=== PATIENT | male | born 1960 | race Caucasian/White ===

== ENCOUNTER 2023-09-10 07:40 | Outpatient (CLI) | payer BC, SELFPAY ==
--- NOTE | 2023-09-10 09:13 | W.ANESCHARGE ---
Anesthesia Charges Start Date/Time Anesthesia Start Date: 09/10/23 Anesthesia Start Time: 08:51 Stop Date/Time Anesthesia Stop Date: 09/10/23 Anesthesia Stop Time: 09:17
--- NOTE | 2023-09-10 09:19 | W.ANESCHARGE ---
Anesthesia Charges Start Date/Time Anesthesia Start Date: 09/10/23 Anesthesia Start Time: 08:51 Stop Date/Time Anesthesia Stop Date: 09/10/23 Anesthesia Stop Time: 09:17
== END 2023-09-10 07:41 | disposition home or self-care (01) ==
PROVIDERS: PCP Family Medicine; Visit Provider Internal Medicine Gastroenterology
DX: Z12.11 Encounter for screening for malignant neoplasm of colon (principal); K63.5 Polyp of colon; K62.1 Rectal polyp; K57.30 Diverticulosis of large intestine without perforation or abscess without bleeding; Z86.010 Personal history of colon polyps
CPT/HCPCS: 45385; 811; 88305; J2704

== ENCOUNTER 2025-02-01 20:49 | Emergency (ER) | payer BC, SELFPAY ==
--- OUTSIDE RECORDS SUMMARY | 2025-02-01 20:52 | XMS_ITS | Continuity of Care Document ---
Author Organization [place] - [facility] Address [address] [facility] [address] [place] [address] Care Team Providers Care Pin Inserter Regulator Name Role Phone NICHOLAS DOWLING Primary Care Provider Assessment No assessment recorded. Plan of Treatment Reminders Order Date Submit Date Provider Last Modified By Organization Details Last Modified Time Details Appointments LAB BLOOD DRAW 2024 09:50A M [facility] URY Not available Not available Not available ESTABLISH ED 15 2024 10:00A M CHERYL MORROW MD Not available Not available Not available APC EST 2025 10:40A M Jigna Yao PA-C Not available Not available Not available Lab None recorded. Referral None recorded. Procedures None recorded. Surgeries None recorded. Imaging None recorded. Medication Orders None recorded. Patient TargetsNo targets recorded. Patient InstructionsNo instructions recorded. Reason for Referral None Reported. Results Created Date Observation Date Name Description Value Unit Range Abnormal Flag Note LastModifiedBy Organization Detail LastModifiedTime 12/24/1912/23/2024 UA WITHO UT MICRO - CS URISC AN blood - uriscan LARGE negati ve abnormal Not Available [facility] [address], [place], [address], 12/23/2024 11:53:44 12/24/1912/23/2024 UA WITHO UT MICRO - CS URISC AN bilirubin - uriscan NEGATI VE mg/dL negati ve Not Available [facility] [address] [facility] [address], [place], [address], 12/23/2024 11:53:44 12/24/19 25 12/23/2024 UA WITHO UT MICRO - CS URISC AN urobilinogen - uriscan NORMAL mg/dL normal Not Available [facility] [address] [facility] [address], [place], [address], 12/23/2024 11:53:44 12/24/19 25 12/23/2024 UA WITHO UT MICRO - CS URISC AN ketones - uriscan NEGATI VE mg/dL negati ve Not Available [facility] [address] [place] [address] [address], [place], [address], 12/23/2024 11:53:44 12/24/19 25 12/23/2024 UA WITHO UT MICRO - CS URISC AN protein - uriscan 10 mg/dL negati ve abnormal Not Available [facility] [address] [place] [address] [address], [place], [address], 12/23/2024 11:53:44 12/24/19 25 12/23/2024 UA WITHO UT MICRO - CS URISC AN nitrites - uriscan POSITI VE negati ve abnormal Not Available [facility] [address] [place] [address] [address], [place], [address], 12/23/2024 11:53:44 12/24/19 25 12/23/2024 UA WITHO UT MICRO - CS URISC AN glucose - uriscan NEGATI VE mg/dL negati ve Not Available [facility] [address] [place] [address] [address], [place], [address], 12/23/2024 11:53:44 12/24/19 25 12/23/2024 UA WITHO UT MICRO - CS URISC AN pH - uriscan 6.00 5.00-9 .00 Not Available [facility] [address] [place] [address] [address], [place], [address], 12/23/2024 11:53:44 12/24/19 25 12/23/2024 UA WITHO UT MICRO - CS URISC AN sp. gravity - uriscan 1.01 1.01-1 .03 Not Available [facility] [address] [place] [address] [address], [place], [address], 12/23/2024 11:53:44 12/24/19 25 12/23/2024 UA WITHO UT MICRO - CS URISC AN leukocytes - uriscan TRACE negati ve abnormal Not Available [facility] [address] [place] [address] [address], [place], [address], 12/23/2024 11:53:44 12/24/19 25 12/23/2024 UA WITHO UT MICRO - CS URISC AN color - uriscan YELLOW lt. yellow ;yello w Not Available [facility] [address] [place] [address] [address], [place], [address], 12/23/2024 11:53:44 12/24/19 25 12/23/2024 UA WITHO UT MICRO - CS URISC AN clarity - uriscan CLEAR clear Not Available [facility] [address] [place] [address] [address], [place], [address], 12/23/2024 11:53:44 12/24/19 25 12/23/2024 UA WITHO UT MICRO - CS URISC AN total urine volume (mL) 60 /mL ----- ----- ----- ----- ----- ----- ----- ----- ----- ----- ----- ----- ----- ----- ---- *Plea se note the follo wing minim um quant ities for addit ional urine testi ng: - Atypi cals: 3 mL - Cytol ogy: 20 mL - GC/CH : 2 mL - FISH: 30 mL - Atypi cals w/ GC/CH : 5 mL - Cytol ogy PLUS FISH: 50 mL - Urine Cultu re: 3 mL ----- ----- ----- ----- ----- ----- ----- ----- ----- ----- ----- ----- ----- ----- ---- This lab resul t is being provi ded to you and your provi greg at the same time in compl iava [facility] with the Centu ry Cures Act. Your provi greg may not have had time to revie w and make recom menda tions based on the resul t. Earlene e allow up to one week for provi greg revie w. Not Available [facility] [address] [facility] [address], [place], [address], 12/23/2024 11:53:44 12/24/19 25 12/23/2024 UA MICRO SCOPI C U-WBC 11 - 25 [hpf] 0 - 2 abnormal Not Available [facility] [address] [place] [address] [address], [place], [address], 12/23/2024 11:53:46 12/24/19 25 12/23/2024 UA MICRO SCOPI C U-RBC 0 - 2 [hpf] 0 - 2 Not Available [facility] [address] [place] [address] [address], [place], [address], 12/23/2024 11:53:46 12/24/19 25 12/23/2024 UA MICRO SCOPI C bacteria MANY [hpf] none;r are abnormal Not Available [facility] [address] [place] [address] [address], [place], [address], 12/23/2024 11:53:46 12/24/19 25 12/23/2024 UA MICRO SCOPI C squamous epi SMALL /lpf negati ve,sma ll This lab resul t is being provi ded to you and your provi greg at the same time in compl iance with the Centu ry Cures Act. Your provi greg may not have had time to revie w and make recom menda tions based on the resul t. Earlene e allow up to one week for provi greg revie w. Not Available [facility] [address], [place], [address], 12/23/2024 11:53:46 12/24/19 25 12/23/2024 URINE CULTU RE final report MICROB IOLOGY RESULT S abnormal SOURC E Bladd er Washi ngs KNOWN ALLER GIES NKDA TREAT MENT will start Bactr im pendi ng UC resul ts MEDIA PLATE D AT: Media plate d on 2024 @ 1:44 PM COLON Y COUNT >100, 000 cfu/m l RESUL T Pseud omona s aerug inosa (Isol ate 1) RESUL T Dinorah deven dinorah adolfo (Isol ate 2) Sensi tivit y Holley sis Frederick te 1 Frederick te 2 ----- ----- ----- ----- ----- ----- ----- - ----- ----- ----- - AMOX/ K CLAV >16/8 R AMPIC ILLIN >16 R CEFAZ BRENT >16 R CEFTA ZIDIM E 4*S CEFTA ZIDIM E/ANTONIO BACTA M <=4*S <=4*S CEFTR IAXON E <=1*S CEFUR OXIME >16 R CIPRO FLOXA CARLOS <=0.2 5*S <=0.2 5*S GENTA MICIN <=4*S IMIPE NEM <=1*S 4 R LEVOF LOXAC IN <=0.5 *S <=0.5 *S MEROP ENEM <=1*S <=1*S MEROP ENEM/ VABOR BACTA M <=4*S NITRO FURAN TOIN 64 R PIP/T AZO <=16* S <=16* S TETRA CYCLI NE <=4*S TOBRA MYCIN <=2*S <=2*S TRIME TH/CARLSON LFA <=2/3 8*S Orga nisms that are susce ptibl e to tetra cycli ne are gener ally also susce ptibl e to doxyc yclin e and minoc yclin e. Any subst ituti on of drugs which have not been teste d for sensi tivit y shoul d be consi dered based on appro west usage of the drugs . Infor jesus botello on doxyc yclin e and minoc yclin e can be found in the Physi krista' s Desk Refer ence or from the [facility] actur er. S= Susce ptibl e;I= Inter media te;R= Resis tant; ESBL= Resis tance due to confi rmed ESBL; Suspe cted ESBL= Posit nehal scree rubio only This lab resul t is being provi ded to you and your provi greg at the same time in compl iance with the Centu ry Cures Act. Your provi greg may not have had time to revie w and make recom menda tions based on the resul t. Plepatrick e allow up to one week for provi greg revie w. Not Available [facility] [address] [facility] [address], [place], [address], 12/26/2024 11:20:28 12/30/19 25 12/29/2024 CT, cysto gram No observ ation record ed. JOSE [facility] [place] [address] [facility] [address], [place], [address], 12/30/2024 07:48:35 Result Notes None recorded. Problems Name Problem SNOMED Code Status Onset Date Resolution Date Notes Provider Name and Address Organization Details Recorded Time Ostium secundum type atrial septal defect 409572231 Active 2023 Cheng Meath null, [facility] 4 15:47:28 Cerebral infarction 903144339 Active 2023 Cheng Meath null, [facility] 4 15:47:40 Transient cerebral ischemia 522938656 Active 2023 Cheng Meath null, [facility] 4 15:47:48 Hypercholester olemia 13906052 Active 2023 Cheng Meath null, [facility] 4 15:47:54 Gastroesophage al reflux disease 186497523 Active 2023 Cheng Meath null, [facility] 4 15:48:00 Adenomatous polyp of colon 458114915 Active 2023 Cheng brown, [facility] 4 15:48:09 Prostate specific antigen above reference range 003844499 Active 2024 CHERYL MORROW MD [address] [place] [address],[address], [place], [address], [facility] 5 13:49:45 Malignant neoplasm of prostate 579693878 Active 2024 CHERYL MORROW MD [address] [place] [address],[address], [place], [address], [facility] 5 10:36:55 Erectile dysfunction 632890336 Active 2024 CHERYL MORROW MD [address] [place] [address],[address], [place], [address], [facility] 5 10:39:54 Acute urinary tract infection 849696742 Active 2024 CHERYL MORROW MD [address] [place] [address],[address], [place], [address], [facility] 5 14:56:33 Problem Notes None recorded. Procedures Surgical History Date Name Laterality Status Provider Name and Address Organization Details Recorded Time 01/02/20 25 Lance Catheter Removal completed Amos Alba [facility] 01/01/2025 12:51:49 12/24/19 25 Bladder Irrigation completed CHERYL MORROW MD [address] [place] [address],[address], [place], [address], [facility] 12/23/2024 09:35:15 12/18/19 25 PROSTATECTOMY WITH BILATERAL PELVIC LYMPH NODE DISSECTION, ROBOT ASSISTED LAPAROSCOPIC (SURG) completed Gali Nair [facility] 12/24/2024 10:52:04 11/19/19 25 COMPLEX VISIT completed CHERYL MORROW MD [address] [place] [address],[address] [place], [address], [facility] 11/18/2024 10:44:12 11/13/19 25 Prostate Biopsy Procedure completed CHERYL MORROW MD [address] [place] [address],[address], [place], [address], [facility] 11/12/2024 13:49:26 11/13/19 25 Rocephin/Ceftriax one [facility] 11/12/2024 13:41:36 10/03/19 25 Blood Draw/OFFSET PRESS OPERATOR HELPER/PSA RESULTS [facility] 10/02/2024 10:23:42 09/17/19 25 Bladder Scan completed Carolann Conner [facility] 09/16/2024 11:42:18 09/10/19 24 [facility] 09/26/2023 11:05:27 08/07/19 24 COMPLEX VISIT completed Hieu Park MD [address] [place] [address],[address], [place], [address], [facility] 08/07/2023 15:02:44 08/07/19 24 Bladder Scan completed Cheng Oneal [facility] 08/07/2023 14:46:50 07/09/19 20 Diagnostic colonoscopy completed Carolann Conner [facility] 09/16/2024 11:41:54 11/02/19 13 Colonoscopy completed Cheng Oneal [facility] 07/31/2023 15:48:32 Insert epicard eltrd open completed Not Available Health Note 08/06/2023 11:45:05 Removal of sperm duct(s) completed Not Available Health Note 08/06/2023 11:45:06 Imaging Results None recorded. Procedure Notes None recorded. Medical Equipment None Reported. Allergies No known drug allergies Medications Name Sig Start Date Stop Date Status Note LastModified by Organization Details LastModified Time atorvasta tin 20 mg tablet TAKE 1 TABLET BY MOUTH AT BEDTIME active Not Available Not Available No t Available hydrocodo ne 5 mg-acetam inophen 325 mg tablet TAKE 1/2 TABLET EVERY 4 TO 6 HOURS NEEDED FOR PAIN DO NOT EXCEED 8 TABLETS PER DAY 08/07 completed 2023- HN: Patient reports no longer taking Not Available Not Available Not Available cyanocoba khang (vit B-12) 1,000 mcg tablet TAKE 1 TABLET (1,000 MCG) BY MOUTH ONCE DAILY active Not Available Not Available No t Available sulfameth oxazole 800 mg-trimet hoprim 160 mg tablet TAKE 1 TABLET BY MOUTH EVERY 12 HOURS FOR 5 DAYS active Not Available Not Available No t Available triamcino lone acetonide 0.1 % topical cream APPLY TO AFFECTED AREA ON THE BACK AND ABDOMEN 2XDAILY FOR 2 WEEKS NEEDED FLARES active Not Available Not Available No t Available amoxicill in 500 mg tablet TAKE 1 TABLET BY MOUTH 3 TIMES DAILY FOR 7 DAYS 08/07 completed HN: Patient reports no longer taking Not Available Not Available Not Available ceftriaxo ne 1 gram solution for injection Take 1 g by injectio n route. 11/18 completed Not Available Not Available Not Available methocarb ulises 750 mg tablet TAKE 1 TABLET BY MOUTH 4 TIMES A DAY 11/18 completed HN: Patient reports no longer taking Not Available Not Available Not Available ibuprofen 600 mg tablet TAKE 1 TABLET EVERY 6 TO 8 HOURS NEEDED. 08/07 completed HN: Patient reports no longer taking Not Available Not Available Not Available levofloxa carlos 500 mg tablet TAKE 1 TABLET BY MOUTH EVERY 24 HOURS FOR 7 DAYS active Not Available Not Available No t Available esomepraz ole magnesium 20 mg capsule,d elayed release 20mg 1/day 12/23 completed Not Available Not Available Not Available tadalafil 5 mg tablet Take 1 tablet every day by oral route for 90 days. 2024 active Not Available Not Available Not Avai lable sildenafi l (pulmonar y hypertens ion) 20 mg tablet Take 1 tablet by oral route as needed for 60 days, for ED. 11/18 completed HN: Patient reports no longer taking Not Available Not Available Not Available chlorhexi dine gluconate 0.12 % mouthwash PLEASE SEE ATTACHED FOR DETAILED DIRECTIO NS 08/07 completed HN: Patient reports no longer taking Not Available Not Available Not Available sildenafi l 30mg Prior to intercou rse 12/23 completed Not Available Not Available Not Available Vitals Date Recorded Body height Provider Name an d Address Organization Details Last Updated DateTime 01/01/2025 185.42 cm Amos MOTA [facility] 01/01/2025 12:18:39 Social History Question Answer Notes LastModified by Organizat ion Details LastModified Time Tobacco Smoking Status Never Smoker Not Available Health Note 09/12/2024 11:05:29 Do You Have An Advance Directive? No [email or web address] Information not available 09/12/2024 What Is Your Level Of Caffeine Consumption? Moderate [email or web address] Information not available 09/12/2024 How Much Tobacco Do You Chew? None [email or web address] Information not available 09/12/2024 Race Unknown Information not available 12/23/2024 Preferred Language Zambian Information not available 12/23/2024 Do You Have A Medical Power Of Review Coordinator? No [email or web address] Information not available 09/12/2024 What Was The Date Of Your Most Recent Tobacco Screening? 12/23/2024 Information not available 12/23/2024 Have You Ever Been Counseled For Unhealthy Alcohol Use? No Information not available 08/07/2023 What Is Your Relationship Status? [email or web address] Information not available 09/12/2024 Are You Sexually Active? Yes [email or web address] Information not available 09/12/2024 Has Tobacco Cessation Counseling Been Provided? No Information not available 08/07/2023 How Many Days In The Past Year Have You Consumed 5 Or More Drinks? 0 [email or web address] Information no t available 09/12/2024 Sex: Male Functional Status Question Answer Note LastModified by Organizat ion Details LastModified Time Do you use any illicit or recreational drugs? No [email or web address] Information not available 09/12/2024 Do you or have you ever used any other forms of tobacco or nicotine? No Information not available 08/07/2023 What is your level of alcohol consumption? Occasional [email or web address] Information not available 09/12/2024 Do you or have you ever used smokeless tobacco? Never used smokeless tobacco [email or web address] Information not available 09/12/2024 Do you or have you ever used e-cigarettes or vape? Never used electronic cigarettes [email or web address] Information not available 09/12/2024 Mental Status None recorded. Family History Relationship Description Onset Age of this Age Resolved Age Notes LastModified by Organization Details LastModified Time Father Family history of malignant neoplasm of prostate 45 [email or web address] Not available 2023 11:45:04 Medical History Condition Response Other N High Blood Pressure N Kidney Stones N Depression N Lung Disease N GERD/Acid Reflux N Sexually Transmitted Infection N Cancer N High Cholesterol Y Diabetes N Bleeding Disorder N Heart Disease N Immunizations Vaccine Type Date Status Note Provider Nam e and Address Organization Details Recorded Time influenza, unspecified formulation 3 completed Cheng Meath null, [facility] 08/07/2023 14:38:32 SARS-COV-2 (COVID-19) vaccine, UNSPECIFIED 2 completed Cheng Meath null, [facility] 08/07/2023 14:38:32 Influenza, split virus, quadrivalent, preservative 7 completed Cheng Meath null, [facility] 08/07/2023 14:38:31 Influenza, injectable,quadriva lent, preservative free, pediatric 3 completed Cheng Meath null, [facility] 08/07/2023 14:38:31 COVID-19, mRNA, LNP-S, PF, 30 mcg/0.3 mL dose 2 completed [facility]23 14:38:31 COVID-19, mRNA, LNP-S, PF, 30 mcg/0.3 mL dose 1 completed Cheng Meath null, [facility] 08/07/2023 14:38:32 COVID-19, mRNA, LNP-S, PF, 30 mcg/0.3 mL dose 1 completed [facility] null, [facility] 08/07/2023 14:38:32 Tdap 4 completed Cheng Meath null, [facility] 08/07/2023 14:38:32 Influenza, split virus, quadrivalent, PF 6 completed Cheng Meath null, [facility] 08/07/2023 14:38:32 Influenza, split virus, quadrivalent, PF 0 completed Cheng Meath null, [facility] 08/07/2023 14:38:32 Influenza, split virus, quadrivalent, PF 3 completed Cheng Meath null, [facility] 08/07/2023 14:38:32 Influenza, split virus, quadrivalent, PF 0 completed Cheng Meath null, [facility] 08/07/2023 14:38:32 Influenza, split virus, quadrivalent, PF 6 completed Cheng Meath null, [facility] 08/07/2023 14:38:32 Influenza, split virus, quadrivalent, PF 4 completed Cheng Meath null, [facility] 08/07/2023 14:38:32 SARS-COV-2 (COVID-19) vaccine, UNSPECIFIED 3 completed Not Available Health Note 09/12/2024 11:05:32 Tdap 5 completed Not Available [facility] 12/23/2024 09:02:25 Pneumococcal conjugate PCV20, polysaccharide DMQ779 conjugate, adjuvant, PF 5 completed Not Available Count includes the [facility] 12/23/2024 09:02:25 Past Encounters Encounter ID Performer Location Encounter Start Date Encounter Closed Date Diagnosis/Indication Diagnosis SNOMED-CT Code Diagnosis ICD10 Code Diagnosis Note [id number] MD Arian POZO_Woo [address] [address] 12/23/2024 09:00:07 12/29/2024 17:17:28 Malignant neoplasm of prostate 651198625 C61 Dysuria 71357265 R30.0 [id number] MD Arian POZO_W[place]ney [address] [address] 01/01/2025 12:07:46 01/06/2025 04:02:41 Malignant neoplasm of prostate 627642966 C61 Health Concerns Section Related Observation LastModified by Organization Detai ls LastModified Time None Recorded Concern Status LastModified by Organization Details LastModified Time None Recorded Payers Encounter Date Sequence Insurance Name Policy Number Policy Saucedo Covered Member ID Saucedo Member ID Guarantor Name 01/01/2025 1 [place] Shantell David [id number] Dino Serratozulay
--- OUTSIDE RECORDS SUMMARY | 2025-02-01 20:52 | XMS_ITS | Clinical Summary ---
Author Organization [employer] [facility] Address [address] [place] [address] Care Team Providers Care Financial Sales Consultant Name Role Phone Geovanna Lopez DO Primary Care Provider [phone] Allergies No known active allergies Medications fluticasone (50 mcg per actuation) nasal solution (FLONASE)Indicati ons:Allergic rhinitis, unspecified allergic rhinitis type Inhale 1 [place] into both nostrils once daily. 1 Bottle 11 6 Active esomeprazole (NEXIUM) 20 mg capsuleIndication s:Gastroesophagea l reflux disease with esophagitis Take 1 capsule by mouth once daily before a meal. 90 capsule 3 0 Active triamcinolone (ARISTOCORT; KENALOG) 0.1 % creamIndications: Atopic dermatitis, unspecified type Apply topically to affected area(s) 2 times daily. Up to 2 weeks 60 g 1 2 Active atorvastatin (LIPITOR) 20 mg tabletIndications :Hypercholesterem ia Take 1 Tablet (20 mg) by mouth at bedtime. 100 Tablet 3 5 Active cyanocobalamin 1,000 mcg tabletIndications :Vitamin B12 deficiency Take 1 Tablet (1,000 mcg) by mouth once daily. 100 Tablet 2 5 Active tadalafiL 5 mg tablet Take 5 mg by mouth once daily. Take 30 minutes before sexual activity. Active oxyCODONE 5 mg immediate release tabletIndications :Post-operative pain Take 1 Tablet (5 mg) by mouth every 4 hours if needed for Pain. 6 Tablet 12/18/2024 11:36 AM CDT 5 Active bacitracin 500 unit/g ointmentIndicatio ns:Post-operative pain Apply topically to affected area(s) 3 times daily if needed (for catheter associated discomfort). 14 g 12/18/2024 11:36 AM CDT 5 Active sennosides-docusa te (8.6-50 mg) tabletIndications :Constipation, unspecified constipation type Take 1 Tablet by mouth 2 times daily if needed for Constipation. 10 Tablet 12/18/2024 11:36 AM CDT 5 Active aspirin 81 mg enteric coated tabletIndications :Hypercholesterem ia Take 1 Tablet (81 mg) by mouth once daily. Restart aspirin on Friday 12/22. 5 Active trimethoprim-sulf amethoxazole 160-800 mg tab Take 1 tablet every 12 hours by oral route for 5 days. 5 Active Active Problems Problem Noted Date Diagnosed Date Prostate cancer 12/11/2024 Vitamin B12 deficiency 09/19/2024 Acute right-sided low back pain without sciatica 08/18/2024 Elevated PSA 09/05/2023 Non morbid obesity, unspecified obesity type Adenomatous colon polyp 11/05/2012 Overview (09/12/2023): Colonoscopy 10/2012 polyp repeat in 5 years Colonoscopy 03/2018 polyp, repeat in 5 years Colonoscopy 09/2023 TA, repeat in 7 years Abnormal blood sugar 01/20/2010 Eosinophilic esophagitis 01/19/2010 Overview (01/19/2010): Seen on biopsy on endoscopy 01/11 Ostium secundum type atrial septal defect 2007 Overview (01/19/2010): fixed now- doesn't need SBE, - sees [facility] every 5 years. 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 Cespedes at [facility] Unspecified transient cerebral ischemia 08/07/19 08 Overview (08/07/2007): right hemisphere TIA when 41, patent foramen ovale. Fitting and adjustment of spectacles and contact lenses 08/07/2007 Overview (08/07/2007): wears contacts Esophageal reflux 09/26/2005 Overview (12/05/2013): Started 2001 Endoscopy 01/[address] Garay and biopsy done. EGD 11/2013 reflux, no eosinophilic esophagitis Hypercholesteremia Resolved Problems Problem Noted Date Diagnosed Date Resolved Date Ostium secundum type atrial septal defect 05/08/2006 08/07/2007 Overview (05/08/2006): SBE prophy Unspecified transient cerebral ischemia 01/06/2005 08/07/2007 Encounters Date Type Department Care Team Description 01/01/2025 Orders Only [facility] Scanner 1 scan: (1-Ord) [facility], [facility] CAT[facility]TER REMOVAL, 01/01/2025 12/24/2024 10:00 AM CDT Office Visit [facility] [id number] [place] [address] Geovanna Lopez [facility] F/U 12/24/2024 Travel 12/20/2024 Travel 12/19/2024 Patient Outreach [facility] [id number] [place] [address] Yasmin Kennedy, STEPHANIE Primary RN Care Management; Hospital F/U (Post-operative pain /DOD: 12/18/24/LACE: 23) 12/17/2024 7:26 AM CDT Anesthesia Event [address] [address] Koko Okeefe CRNA Lopez Vasquez, Kathy D, NP 12/17/2024 7:15 AM CDT - 12/17/2024 10:31 AM CDT Surgery [address] [address] Enmanuel Alonso MD ROBOTIC RADICAL PROSTATECTOMY WITH BILATERAL PELVIC LYMPH NODE DISSECTION 12/17/2024 5:19 AM CDT - 12/18/2024 11:58 AM CDT Hospital Encounter [facility] [address] Enmanuel Alonso MD Post-operative pain (Primary Dx); Constipation, unspecified constipation type; Hypercholesteremia Discharge Disposition: Home Self Care 12/16/2024 Travel 12/11/2024 7:55 AM CDT Office Visit [facility] [address] [facility] [place] [address] Geovanna Lopez DO Preoperative Exam 12/11/2024 Travel 12/08/2024 Travel 11/29/2024 Refill [facility] [address] [place] [address] Geovanna Lopez DO Refill Request (Cyanocobalamin) 11/12/[address] [facility] Scanner 1 scan: (1-Ord) [place] [facility], PROSTATE BIOPSY, 11/12/2024 11/12/[address] [facility] Scanner 1 scan: (1-Ord) [facility], ROCEPHIN CEFTRIAXONE INJECTION, 11/12/2024 from Last 3 Months Immunizations Immunization Administration Dates Next Due AMB Influenza, IIV4 PF (=>6 mos Flulaval,Fluzone Fluarix)(Flu Clinic Only) 04/17/2020 COVID-19 vaccine (Moderna 100mcg/0.5mL) PF, MDV 07/09/2022 COVID-19 vaccine (Pfizer-Bio NTech 30mcg/0.3mL) PF, MDV 11/19/2020,10/29/2020 Influenza Virus, Unspecified 03/21/2023 Influenza, IIV4 03/21/2023, 0,04/19/2016,2015,04/30/2014,04/24/2013 Influenza, IIV4 (=>6mos) MDV 06/13/2017 Pneumococcal Conj 20-valent (Prevnar 20) 09/19/2024 Td (Age >=7 Years) 01/06/2005 Tdap 09/19/2024,04/30/2014 Family History Medical History Relation Name Comments Alcohol/Drug Brother etoh Cancer-prostate Father Heart Disease Father 60's, bypass q uad Hypertension Father Hypertension Mother Hypertension Sister Ivette Thyroid Disease Sister Ivette ? type Relation Name Status Comments Brother Father Mother Sister Ivette Social History Tobacco Use Types Packs/Day Years Used Date Smoking Tobacco: Never Passive Smoke Exposure: Never Smokeless Tobacco: Never Tobacco Cessation:Counseling Given: No Alcohol Use Standard Drinks/Week Comments No 0 (1 standard drink = 0.6 oz pur e alcohol) Alcoholic Drinks/day: 0 PHQ-2 Answer Date Recorded PHQ-2 TOTAL SCORE 0 09/19/2024 Social Connections Answer Date Recorded Do you often feel lonely or isolated from those around you? 0 09/15/2024 Financial Resource Strain Answer Date R ecorded Difficulty of Paying Living Expenses 3 09/15/2024 Difficulty of Paying Living Expenses Not on file 09/15/2024 Food Insecurity Answer Date Recorded Do you worry your food will run out before you are able to buy more? 1 09/15/2024 Transportation Needs Answer Date Record ed Does lack of transportation keep you from medica l appointments? 1 09/15/2024 Does lack of transportation keep you from work, meetings or getting things that you need? 1 09/15/2024 Housing Stability Answer Date Recorded What is your housing situation today? 1 09/15/2024 Utilities Answer Date Recorded Do you have trouble paying f or utilities (for example, heat, electricity, water, phone)? 1 09/15/2024 Sex and Gender Information Value Date Recorded Sex Assigned at Male 10/21/2020 8:47 AM CDT Legal Sex Male 5:22 AM SUPERVISOR INSULATION Gender Identity Male 10/21/2020 8:47 AM CDT Sexual Orientation Straight 10/21/2020 8: 47 AM CDT Occupation Industry Job Start Date Job End Date [employer] Not on file Not on file Not on file Obstetrics History Last Filed Vital Signs Vital Sign Reading Time Taken Comments Blood Pressure 122/70 12/24/2024 10:03 AM CDT Pulse 80 12/24/2024 10:03 AM CDT Temperature 36.4 C (97.6 F) 12/24/2024 10:03 AM CDT Respiratory Rate 18 12/18/2024 7:18 AM CDT Oxygen Saturation 95% 12/24/2024 10: 03 AM CDT Inhaled Oxygen Concentration - - Weight 110.5 kg (243 lb 9.6 oz) 025 10:03 AM CDT Height 185.4 cm (6' 0.99) 12/18/2024 5:56 AM CD T Body Mass Index 32.15 12/18/2024 5:56 AM CDT Plan of Treatment Health Maintenance Due Date Last Done Comments HIV for age 15-65 1976 Zoster (shingles) series for age 50+ (1 of 2) 1980 RSV vaccine for adults or (1 - Risk 60-74 years 1-dose series) 2021 COVID-19 vaccine series ( season) 2024 07/09/2022, 07/22/2021, 11/19/2020, Additional history exists Influenza Vaccine (#1) 2025 , 03/21/2023, 04/17/2020, Additional history exists Depression screening for age 12+ 09/19/2025 09/19/2024, 03/21/2023, 01/27/2022, Additional history exists BMI (ht and wt on same day) for age 18+ 12/11/2025 12/11/2024, 09/19/2024, 09/05/2023, Additional history exists Lipids for age 45-75 09/19/2029 09/19/2024, 03/21/2023, 01/27/2022, Additional history exists Colonoscopy through age 75 09/09/203009/09, 03/21/2018, 03/21/2018, Additional history exists Tetanus booster 09/19/2034 09/19/2024, 04/09, 01/06/2005 Hepatitis C screening for age 18-79 Completed 08/15/2019 Pneumococcal series for age 50+ Completed 09/19/2024 Hepatitis B series for 19+ Aged Out N o longer eligible based on patient's age to complete this topic Procedures Procedure Name Priority Date/Time Associated Diagnosis Comments SCAN-OPERATIVE/PROCE DURE REPORT 01/01/2025 12:00 AM CDT HEMOGLOBIN Early AM 12/18/2024 8:12 AM CDT BASIC METABOLIC PANEL Early AM 12/18/2024 8:12 AM CDT PATH TISSUE EXAM Today 12/17/2024 8:31 AM CDT ENDOTRACHEAL TUBE Routine 12/17/2024 8:1 9 AM CDT ENDOTRACHEAL TUBE Routine 12/17/2024 8:1 9 AM CDT ENDOTRACHEAL TUBE Routine 12/17/2024 8:1 9 AM CDT ROBOTIC PROSTATECTOMY XI Tier 3: within 90 days 12/17/2024 7:11 AM CDT MALIGNANT NEOPLASM OF PROSTATE Case Notes 180 [id number] Special Needs 6 ft, 114.9 kg, BMI 33.69 PLATELET COUNT KENZIE 12/17/2024 6:19 AM CDT HEMOGLOBIN Preop 12/17/2024 6:19 AM CDT BASIC METABOLIC PANEL Preop 12/17/2024 6:19 AM CDT HEMOGLOBIN Routine 12/11/2024 8:19 AM CDT Preoperative examination Prostate cancer (HC) SCAN-OPERATIVE/PROCE DURE REPORT 11/12/2024 12:00 AM CDT SCAN-OPERATIVE/PROCE DURE REPORT 11/12/2024 12:00 AM CDT LIPID PANEL W REFLEX MEASURED LDL Routine 09/19/2024 9:02 AM CDT Hypercholesteremia COLONOSCOPY SCREENING Routine 09/10/2023 12:00 AM SUPERVISOR INSULATION Adenomatous polyp of colon, unspecified part of colon ANTI HCV Routine 08/15/2019 8:09 AM SUPERVISOR INSULATION Need for hepatitis C screening test from Last 3 Months or Most Recently Relevant to Health Maintenance Results * SCAN-OPERATIVE/PROCEDURE REPORT (01/01/2025 12:00 AM CDT) us Scanner OTHER Final Result * Hemoglobin (12/18/2024 8:12 AM CDT) Only the most recent of3 resultswithin the time period is included. HEMOGLOBIN 13.5 13.5 - 17.5 g/dL 12/18/2024 8:31 AM CDT [facility] MCV 90 80 - 100 fL 12/18/2024 8:31 AM T [facility] Blood BLOOD SPECIMEN / Unknown Venipuncture / Unknown 12/18/2024 8:12 AM CDT 12/18/2024 8:26 AM CDT Enmanuel Alonso MD HEMATOLOGY Final Result [facility] SENDOUT INTERNAL ZIP [id number] [place] [address] * (ABNORMAL) Basic Metabolic Panel (12/18/2024 8:12 AM CDT) Only the most recent of2 resultswithin the time period is included. SODIUM 140 136 - 145 mmol/L 12/18/2024 8:54 AM T [facility] POTASSIUM 4.2 3.5 - 5.1 mmol/L 12/18/2024 8:54 AM T [facility] CHLORIDE 106 98 - 107 mmol/L 12/18/2024 8:54 AM T [facility] CO2,TOTAL 26 22 - 29 mmol/L 12/18/2024 8:54 AM T [facility] ANION GAP 8 5 - 18 12/18/2024 8:54 AM T [facility] GLUCOSE 138(H) 70 - 99 mg/dL 12/18/2024 8:54 AM T [facility] CALCIUM 8.8 8.8 - 10.4 mg/dL 12/18/2024 8:54 AM [facility] Comment: Reference ranges for this test were updated on 05/13/2024 to reflect our healthy population more accurately. Reference range changes are not retroactively applied to results, but previous results using the same methodology can be interpreted in the context of the new reference range. BUN 15 8 - 23 mg/dL 12/18/2024 8:54 AM CDT [facility] CREATININE 1.16 0.70 - 1.20 mg/dL 12/18/2024 8:54 AM CDT [facility] BUN/CREAT RATIO 13 10 - 20 8:54 AM CDT [facility] eGFR 71(L) >90 mL/min/1. 73m2 12/18/2024 8:54 AM CDT [facility] Comment:As of 2021, eG FR is calculated by the CKD-EPI creatinine equation without race adjustment. eGFR can be influenced by muscle mass, exercise, and diet. The reported eGFR is an estimation only and is only applicable if the renal function is stable. Blood BLOOD SPECIMEN / Unknown Venipuncture / Unknown 12/18/2024 8:12 AM CDT 12/18/2024 8:26 AM CDT us Enmanuel Alonso MD CHEMISTRY Final Result [facility] SENDOUT INTERNAL ZIP [id number] [place] [address] * PATH TISSUE EXAM (12/17/2024 8:31 AM CDT) Case Report Pathology Report Case: [id number] Authorizing Provider: Enmanuel Alonso, Collected: 12/17/2024 0831 Ordering Location: [facility] Received: 12/17/2024 1016 Pathologist: Jermain Grace MD Specimens: A) - Lymph Node, Bilateral pelvic lymph nodes B) - Prostate, prostate and seminal vesicles 12/18/2024 4:01 PM CDT [facility] Final Diagnosis A) LYMPH NODES, BILATERAL PELVIC, REGIONAL DISSECTION: Seven lymph nodes, negative for metastatic carcinoma (0/7) B) PROSTATE AND SEMINAL VESICLES, ROBOTIC RADICAL PROSTATECTOMY: 1. Prostatic adenocarcinoma, Rome score 3 + 4 = 7 (ISUP Grade Group 2) 2. Extraprostatic extension by tumor is present at the right posterior prostate 3. The surgical margins are negative for tumor 4. Negative for lymphatic/vascula r invasion by tumor 5. Background prostate with nodular hyperplasia and chronic active prostatitis 6. Please see prostate cancer staging parameters below 12/18/2024 4:01 PM CDT [facility] LABORATORY-C ENTRAL LABORATORY at 1601 CDT Clinical Information 64 yo with history of prostatic adenocarcinoma, ISUP Grade group 1. PSA = 6.8 12/18/2024 4:01 PM CDT [facility] [facility] Gross Description A) Received fresh labeled with the patient's name and bilateral pelvic lymph nodes, is a 4 x 3.5 x 1.5 cm aggregate of yellow lobulated fibrofatty tissue. The specimen is dissected revealing 7 pink-kraft possible lymph nodes ranging from 0.4 x 0.4 x 0.2 cm to 1.7 x 1 x 0.6 cm. The larger nodes are bisected and the specimen is entirely submitted in 4 cassettes: 1. 5 possible nodes, toto 2. Single possible node, bisected 3. Single possible node, bisected 4. Remainder of adipose B) Received fresh, labeled with the patient's name and prostate and seminal vesicles, is a 68 gram, 4.2 (apex-base) x 5.5 (left-right) x 4.5 (anterior-posteri or) cm trimmed prostatectomy specimen. The attached adnexa have dimensions as follows: right seminal vesicle (2.5 x 1.2 x 1 cm), right vas deferens (2 x 0.6 cm), left seminal vesicle (2.5 x 1.5 x 1.1 cm), and left vas deferens (2.2 x 0.6 cm). The prostate gland is inked: Right: Green Left: Blue Posterior: Black Apical urethral meatus: Red The specimen is serially sectioned from apex to base into 10 slices. Sectioning reveals markedly nodular periurethral parenchyma. No discrete indurated or pale discolored lesions are identified throughout the specimen. Security System Engineer sections including every other slice of prostate are submitted as follows: 1-4. Slice 1 apex radial sections(1 Right anterior, 2 Right posterior 3 Left anterior and 4 Left posterior) 5-6. Slice 2 apex composite(5 Right and 6 Left) 7-10. Slice 4 mid composite(7 Right anterior, 8 Right posterior 9 Left anterior and 10 Left posterior) 11-16. Slice 6 mid composite(11-12 Right anterior, 13 Right posterior 14-15 Left anterior and 16 Left posterior) 17-22. Slice 8 base composite(17,18 Right anterior, 19 Right posterior 20,21 Left anterior and 22 Left posterior) 23-28. Slice 10 base composite(23,24 Right anterior, 25 Right posterior 26,27 Left anterior and 28 Left posterior) 29-32. basal slice radial sections (29 Right anterior, 30 Right posterior 31 Left anterior and 32 Left posterior) 33. Right seminal vesicle and vas deference 34. Left seminal vesicle and vas deference JPW 12/17/24 12/18/2024 4:01 PM CDT [facility]-C ENTRAL LABORATORY Microscopic Description The final diagnosis is based on microscopic examination of appropriate sections of all specimens. 12/18/2024 4:01 PM CDT [facility] SYNOPTIC REPORTING PROSTATE GLAND: Radical Prostatectomy PROSTATE GLAND: RADICAL PROSTATECTOMY - All Specimens 8th Edition - Protocol posted: 03/28/2023 SPECIMEN Procedure: Radical prostatectomy Prostate Size: Prostate Weight (Grams): 68 g Prostate Greatest Dimension (Centimeters): 5.5 cm Additional Prostate Dimension (Centimeters): 4.5 cm Additional Prostate Dimension (Centimeters): 4.4 cm TUMOR Histologic Type: Acinar adenocarcinoma, conventional (usual) Histologic Grade: Grade: Grade group 2 (Rome Score 3 + 4 = 7) Percentage of Pattern 4: 31 - 40% Intraductal Carcinoma (IDC): Not identified Cribriform Glands: Present Treatment Effect: No known presurgical therapy TUMOR QUANTITATION: Estimated Percentage of Prostate Involved by Tumor: 1 - 5% Extraprostatic Extension (EPE): Present, focal Location of Extraprostatic Extension: Right posterior Urinary Bladder Neck Invasion: Not identified Seminal Vesicle Invasion: Not identified Lymphatic and / or Vascular Invasion: Not Identified Perineural Invasion: Present MARGINS Margin Status: All margins negative for invasive carcinoma REGIONAL LYMPH NODES Regional Lymph Node Status: : All regional lymph nodes negative for tumor Number of Lymph Nodes Examined: 7 pTNM CLASSIFICATION (AJCC 8th Edition) Reporting of pT, pN, and (when applicable) pM categories is based on information available to the pathologist at the time the report is issued. As per the AJCC (Chapter 1, 8th Ed.) it is the managing physician s responsibility to establish the final pathologic stage based upon all pertinent information, including but potentially not limited to this pathology report. pT Category: pT3a T Suffix: (m) pN Category: pN0 ADDITIONAL FINDINGS Additional Findings: Nodular prostatic hyperplasia Additional Findings: Inflammation (type): chronic active prostatitis SPECIAL STUDIES Ancillary Studies: Not performed Comment(s): B25 12/18/2024 4:01 PM CDT [facility] LABORATORY-C ENTRAL LABORATORY Additional Information Interpreted at [facility] - [address], [place] [address] 12/18/2024 4:01 PM CDT [facility]- ENTRAL LABORATORY Tissue LYMPH NODE SPECIMEN / Unknown 12/17/2024 8:31 AM CDT 12/17/2024 10:16 AM CDT Tissue specimen (specimen) SPECIMEN FROM PROSTATE / Unknown 12/17/2024 9:17 AM CDT 12/17/2024 10:16 AM CDT Enmanuel Alonso MD PATHOLOGY/CYTOLOGY Fin al Result [facility] [address] [place] [address], [facility] SENDOUT INTERNAL ZIP [id number] [place] [address] * HCHG TUBE PR1, HCHG STYLET PR1, HCHG MOUTHPIECE PR1 (12/17/2024 8:19 AM CDT) Narrative Koko Okeefe CRNA - 12/17/2024 8:19 AM CDT Koko Okeefe CRNA 12/17/2024 8:44 AM Procedure: ETT Patient location during procedure: OR ETT Properties Mask Ventilation: easy Final Technique: direct laryngoscopy Type: straight Location: oral Cuffed: yes Tube Size: 8.0 mm Stylet: yes Laryngoscope Blade: Cespedes Blade Size: 2 Cormack-Lehane Grade View: 1 Insertion Attempts: 2 Placement Verification: auscultation, end tidal CO2 and symmetrical chest wall movement Assessment: pharynx clear, atraumatic and dentition unchanged Secured at: 24 Measured From: lips Tooth guard used and removed: yes Bite Block: soft Difficulty: 0 (not difficult) us Armin Bishop MD ANESTHESIA PX NOTE ORDERAB LES Edited Result - Final * (ABNORMAL) PLATELET COUNT (12/17/2024 6:19 AM CDT) PLATELET COUNT 220 140 - 440 thou/cu mm 12/17/2024 1:38 PM CDT [facility] MPV 11.2(H) 6.5 - 11.0 fL 12/17/2024 1:38 PM CDT [facility] Blood BLOOD SPECIMEN / Unknown Non-Lab Venipuncture / Unknown 12/17/2024 6:19 AM CDT 12/17/2024 6:35 AM CDT us Enmanuel Alonso MD HEMATOLOGY Final Result [facility] SENDOUT INTERNAL ZIP [id number] [address] [place] [address] * SCAN-OPERATIVE/PROCEDURE REPORT (11/12/2024 12:00 AM CDT) us Scanner OTHER Final Result * SCAN-OPERATIVE/PROCEDURE REPORT (11/12/2024 12:00 AM CDT) us Scanner OTHER Final Result * LIPID PANEL W REFLEX MEASURED LDL (09/19/2024 9:02 AM CDT) CHOLESTEROL, TOTAL 158 <200 mg/dL [facility] HDL CHOLESTEROL 65 > OR = 40 mg/dL [facility] TRIGLYCERIDES 57 <150 mg/dL [facility] LDL-CHOLESTEROL 80 mg/dL (calc) [facility] Comment: Reference range: <100 Desirable range <100 mg/dL for primary prevention; <70 mg/dL for patients with CHD or diabetic patients with > or = 2 CHD risk factors. LDL-C is now calculated using the Gwen calculation, which is a validated novel method providing better accuracy than the Friedewald equation in the estimation of LDL-C. Efraín SAMS et al. HANS. 2013;310(19): 8317-1557 (http://education.[employer]/faq/RFR891) CHOL/HDLC RATIO 2.4 <5.0 (calc) [facility] NON HDL CHOLESTEROL 93 <130 mg/dL (calc) [facility] Comment: For patients with diabetes plus 1 major ASCVD risk factor, treating to a non-HDL-C goal of <100 mg/dL (LDL-C of <70 mg/dL) is considered a therapeutic option. Blood BLOOD SPECIMEN / Unknown 09/19/2024 9:02 AM CDT 09/19/2024 9:03 AM CDT Geovanna Lopez DO CHEMISTRY Final Resul t Performing Organization Address City/[facility] Co de Phone Number [employer] [facility] [address] [place] [address], [employer] [address] * COLONOSCOPY SCREENING (09/10/2023 12:00 AM SUPERVISOR INSULATION) us Geovanna Lopez DO GI PROCEDURE ORD Final Resu lt * ANTI HCV (08/15/2019 8:09 AM SUPERVISOR INSULATION) HEPATITIS C ANTIBODY Non-React nehal Non-React nehal 08/15/2019 5:30 PM SUPERVISOR INSULATION [facility] Comment:Antibodies to HCV no t detected; does not exclude the possibility of exposure to HCV. Blood BLOOD SPECIMEN / Unknown Venipuncture / Unknown 08/15/2019 8:09 AM SUPERVISOR INSULATION 08/15/2019 8:09 AM SUPERVISOR INSULATION us Geovanna Lopez DO SEND OUTS Final Resul t [facility] [address] [place] [address], [place] from Last 3 Months or Most Recently Relevant to Health Maintenance Insurance [facility] [place] [address] Advance Directives * Full Code (Latest Code Status on File) Date Activated Date Inactivated Comments 12/17/2024 5:39 AM 12/18/2024 1:58 PM Question Answer Comments Code Status Discussion: Unable to Assess Preferences, Provider to review later Care Teams Financial Sales Consultant Relationship Specialty [place] [id number] [address] [place] [address] PCP - General Family Practice 11/01/12
--- OUTSIDE RECORDS SUMMARY | 2025-02-01 20:52 | XMS_ITS | Continuity of Care Document ---
Author Organization [facility], [facility] Address [address] [place] [address] Care Team Providers Care Preassembler [employer] Name Role Phone NICHOLAS DOWLING Primary Care Provider [phone] Assessment Encounter Date Assessment Date Assessment LastModified by Organization Details LastModified Time 12/23/2024 12/23/2024 64-year-old male presents for follow-up of prostate cancer Robotic radical prostatectomy 12/2024. pT3a, grade group 2, negative margins, bilateral nerve sparing performed. [email or web address] Not available 12/23/2024 09:35:18 Plan of Treatment Reminders Order Date Submit Date Provider Last Modified By Organization Details Last Modified Time Details Appointments LAB BLOOD DRAW 2024 09:50A M [facility] Not available Not available Not available ESTABLISH ED 15 2024 10:00A M CHERYL MORROW MD Not available Not available Not available APC EST 2025 10:40A M Jigna Yao PA-C Not available Not available Not available Lab urinalysi s, dipstick 2024 025 [facility], [address], [address], [place], [address], 12/23/2024 11:53:44 urinalysi s, microscop ic 2024 025 [facility], [address], [address], [place], [address], 12/23/2024 11:53:46 culture, urine 2024 025 [facility], [address], [address], [place], [address], 12/26/2024 11:20:29 Referral None recorded. Procedures None recorded. Surgeries None recorded. Imaging CT, cystogram - Eval bladder leak following prostatec gus 2024 025 [facility] [place], [facility] [facility] [address] Ma[address], [place], [address], 12/29/2024 15:21:09 Medication Orders None recorded. Patient TargetsNo targets recorded. Patient Instructions Encounter Date Encounter Id Patient Instructions Last Modified By Organization Details Last Modified Time 12/23/2024 [id number] 64-year-old male presents for follow-up of prostate cancer Robotic radical prostatectomy 12/2024. pT3a, grade group 2, negative margins, bilateral nerve sparing performed. Lance catheter irrigated normally today, low suspicion for urine leak, postoperative UTI more likely. Antibiotics been sent into the pharmacy which patient will start as we await the urine culture results. Given the story of the catheter getting tugged on prompting worsening symptoms and spasms we will check a cystogram prior to catheter removal next week. [email or web address] Not available 12/23/2024 09:35:50 Reason for Referral None Reported. Results Created Date Observation Date Name Description Value Unit Range Abnormal Flag Note LastModifiedBy Organization Detail LastModifiedTime 12/24/1912/23/2024 UA WITHO UT MICRO - CS URISC AN blood - uriscan LARGE negati ve abnormal Not Available [facility] [address] [facility], [place], [address], 12/23/2024 11:53:44 12/24/19 25 12/23/2024 UA WITHO UT MICRO - CS URISC AN bilirubin - uriscan NEGATI VE mg/dL negati ve Not Available [facility] [address], [place], [address], 12/23/2024 11:53:44 12/24/19 25 12/23/2024 UA WITHO UT MICRO - CS URISC AN urobilinogen - uriscan NORMAL mg/dL normal Not Available [facility] [address] [facility] [address] [facility] [address], [place], [address], 12/23/2024 11:53:44 12/24/19 25 12/23/2024 UA WITHO UT MICRO - CS URISC AN ketones - uriscan NEGATI VE mg/dL negati ve Not Available [facility] [address] [place] [address] [address], [place], [address], 12/23/2024 11:53:44 12/24/19 25 12/23/2024 UA WITHO UT MICRO - CS URISC AN protein - uriscan 10 mg/dL negati ve abnormal Not Available [facility] [address] [place] [address] [address], [place], [address], 12/23/2024 11:53:44 12/24/19 25 12/23/2024 UA WITHO UT MICRO - CS URISC AN nitrites - uriscan POSITI VE negati ve abnormal Not Available [facility] [address] [place] [address] [address], [place], [address], 12/23/2024 11:53:44 12/24/19 25 12/23/2024 UA WITHO UT MICRO - CS URISC AN glucose - uriscan NEGATI VE mg/dL negati ve Not Available [facility] [address] [place] [address] [address], [place], [address], 12/23/2024 11:53:44 12/24/19 25 12/23/2024 UA WITHO UT MICRO - CS URISC AN pH - uriscan 6.00 5.00-9 .00 Not Available [facility] [address] [place] [address] [address], [place], [address], 12/23/2024 11:53:44 12/24/19 25 12/23/2024 UA WITHO UT MICRO - CS URISC AN sp. gravity - uriscan 1.01 1.01-1 .03 Not Available [facility] [address] [facility] [address], [place], [address], 12/23/2024 11:53:44 12/24/19 25 12/23/2024 UA WITHO UT MICRO - CS URISC AN leukocytes - uriscan TRACE negati ve abnormal Not Available [facility] [address] [place] [address] [address], [place], [address], 12/23/2024 11:53:44 12/24/19 25 12/23/2024 UA WITHO UT MICRO - CS URISC AN color - uriscan YELLOW lt. yellow ;yello w Not Available [facility] [address] [place] [address] [address], [place], [address], 12/23/2024 11:53:44 12/24/19 25 12/23/2024 UA WITHO UT MICRO - CS URISC AN clarity - uriscan CLEAR clear Not Available [facility] [address] [place] [address] [address], [place], [address], 12/23/2024 11:53:44 12/24/19 25 12/23/2024 UA WITHO [...] provi g[facility] with [facility] ry Cures Act. Your provi greg may not have had time to revie w and make recom menda tions based on the resul t. Pleas e allow up to one week for provi greg revie w. Not Available [facility] [address] [facility], [place], [address], 12/23/2024 11:53:44 12/24/19 25 12/23/2024 UA MICRO SCOPI C U-WBC 11 - 25 [hpf] 0 - 2 abnormal Not Available [facility] [address] [facility] [address], [place], [address], 12/23/2024 11:53:46 12/24/19 25 12/23/2024 UA MICRO SCOPI C U-RBC 0 - 2 [hpf] 0 - 2 Not Available [facility] [address] [facility], [place], [address], 12/23/2024 11:53:46 12/24/19 25 12/23/2024 UA MICRO SCOPI C bacteria MANY [hpf] none;r are abnormal Not Available [facility] [address], [place], [address], 12/23/2024 11:53:46 12/24/19 25 12/23/2024 UA MICRO SCOPI C squamous epi SMALL /lpf negati ve,sma ll This lab resul t is being provi ded to you and your provi greg at the same time in compl iance with the ry Cures Act. Your provi greg may not have had time to revie w and make recom menda tions based on the resul t. Plepatrick e allow up to one week for provi greg revie w. Not Available [facility] [address] [facility] [address] [facility] [address], [place], [address], 12/23/2024 11:53:46 12/24/19 25 12/23/2024 URINE CULTU [...] ate 2) Sensi tivit y Holley sis Peck te 1 Peck te 2 ----- ----- ----- ----- ----- [...] s Desk Refer ence or from the [facility] actur er. S= Susce ptibl e;I= Inter [...] menda tions based on the resul t. Pleas e allow up to one week for provi greg revie w. Not Available [facility] [address] [facility], [place], [address], 12/26/2024 11:20:28 12/30/19 25 12/29/2024 CT, cysto gram No observ ation record ed. [facility] [place] [address] [address] [facility] [address], [place], [address], 12/30/2024 07:48:35 Result Notes None recorded. Problems Name Problem SNOMED Code Status Onset Date Resolution Date Notes Provider Name and Address Organization Details Recorded Time Ostium secundum type atrial septal defect 081921933 Active 2023 Cheng Meath null, [facility] 4 15:47:28 Cerebral infarction 352005531 Active 2023 Cheng Meath null, [facility] 4 15:47:40 Transient cerebral ischemia 884066797 Active 2023 Cheng Meath null, [facility] 4 15:47:48 Hypercholester olemia 95753557 Active 2023 Cheng Meath null, [facility] 4 15:47:54 Gastroesophage al reflux disease 448208577 Active 2023 Cheng Meath null, [facility] 4 15:48:00 Adenomatous polyp of colon 909590408 Active 2023 Cheng Oneal null, [facility] 4 15:48:09 Prostate specific antigen above reference range 395616671 Active 2024 CHERYL MORROW MD [address] [place] [address],[address], [place], [address], [facility] 5 13:49:45 Malignant neoplasm of prostate 811838938 Active 2024 CHERYL MORROW MD [address] [place] [address],[address], [place], [address], [facility] 5 10:36:55 Erectile dysfunction 725987722 Active 2024 CHERYL MORROW MD [address] [place] [address],[address], [place], [address], [facility] 5 10:39:54 Acute urinary tract infection 291258538 Active 2024 CHERYL MORROW MD [address] [place] [address],[address], [place], [address], [facility] 5 14:56:33 Problem Notes None recorded. Procedures Surgical History Date Name Laterality Status Provider Name and Address Organization Details Recorded Time 01/02/20 25 Lance Catheter Removal completed Amos Alba [facility] 01/01/2025 12:51:49 12/24/19 25 Bladder Irrigation completed CHERYL MORROW MD [address] [place] [address],[address], [address], [facility] 12/23/2024 09:35:15 12/18/19 25 PROSTATECTOMY WITH BILATERAL PELVIC LYMPH NODE DISSECTION, ROBOT ASSISTED LAPAROSCOPIC (SURG) completed Gali Nair [facility] 12/24/2024 10:52:04 11/19/19 25 COMPLEX VISIT completed CHERYL MORROW MD [address] [place] [address],[address], [address], [facility] 11/18/2024 10:44:12 11/13/19 25 Prostate Biopsy Procedure completed CHERYL MORROW MD [address] [place] [address],[address], [address], [facility] 11/12/2024 13:49:26 11/13/19 25 Rocephin[facility]Ceftriax one [facility] 11/12/2024 13:41:36 10/03/19 25 Blood Draw/RN HOSPICE/PSA RESULTS [facility] 10/02/2024 10:23:42 09/17/19 25 Bladder Scan completed Carolann Conner [facility] 09/16/2024 11:42:18 09/10/19 24 Colonoscopy completed [facility] 09/26/2023 11:05:27 08/07/19 24 COMPLEX VISIT completed Hieu Park MD [address] [place] [address],[address], [place], [address], [facility] 08/07/2023 15:02:44 08/07/19 24 Bladder Scan completed [facility] 08/07/2023 14:46:50 07/09/19 20 Diagnostic colonoscopy completed Carolann Conner [facility] 09/16/2024 11:41:54 11/02/19 13 Colonoscopy completed [facility] 07/31/2023 15:48:32 Insert epicard eltrd open completed [...] EXCEED 8 TABLETS PER DAY 08/07 completed HN: Patient reports no longer [...] Not Available Vitals Date Recorded Body height Body mass index (BMI) Body weight Provider Name and Address Organization Details Last Updated DateTime 12/23/2024 185.42 cm 32.3 kg/m2 071022.13 g Mariely Sosa [facility] 12/23/2024 09:24:35 Social History Question Answer Notes LastModified by [...] Unknown Information not available 12/23/2024 Preferred Language Serbian Information not available 12/23/2024 Do You Have A Medical Power Of Demolitionist? No [email or web address] Information not available 09/12/2024 What [...] available 2023 11:45:04 Medical History Condition Response Sexually Transmitted Infection N Diabetes N Other N Bleeding Disorder N High Blood Pressure N Kidney Stones N High Cholesterol Y GERD/Acid Reflux N Heart Disease N Cancer N Depression N Lung Disease N Immunizations Vaccine Type Date Status Note Provider Nam e and Address Organization Details Recorded Time influenza, unspecified formulation 3 completed Cheng Meath null, [facility] 08/07/2023 14:38:32 SARS-COV-2 (COVID-19) vaccine, UNSPECIFIED 2 completed Cheng Meath null, [facility] 08/07/2023 14:38:32 Influenza, split virus, quadrivalent, preservative 7 completed Cheng Meath null, [facility] 08/07/2023 14:38:31 Influenza, injectable,quadriva lent, preservative free, pediatric 3 completed Cheng Meath null, [facility] 08/07/2023 14:38:31 COVID-19, mRNA, LNP-S, PF, 30 mcg/0.3 mL dose 2 [facility] 14:38:31 COVID-19, mRNA, LNP-S, PF, 30 mcg/0.3 mL dose 1 completed Cheng Meath null, [facility] 08/07/2023 14:38:32 COVID-19, mRNA, LNP-S, PF, 30 mcg/0.3 mL dose 1 completed Cheng Meath null, [facility] 08/07/2023 14:38:32 Tdap 4 completed [facility] null, [facility] 08/07/2023 14:38:32 Influenza, split virus, quadrivalent, PF 6 completed Cheng Meath null, [facility] 08/07/2023 14:38:32 Influenza, split virus, quadrivalent, PF 0 completed Cheng Meath null, [facility] 08/07/2023 14:38:32 Influenza, split virus, quadrivalent, PF 3 completed Cheng Meath null, [facility] 08/07/2023 14:38:32 Influenza, split virus, quadrivalent, PF 0 completed Cheng Meath null, [facility] 08/07/2023 14:38:32 Influenza, split virus, quadrivalent, PF 6 completed Cheng Meath null, [facility] 08/07/2023 14:38:32 Influenza, split virus, quadrivalent, PF 4 completed Cheng Meath null, [facility] 08/07/2023 14:38:32 SARS-COV-2 (COVID-19) vaccine, UNSPECIFIED 3 completed Not Available [facility] 09/12/2024 11:05:32 Tdap 5 completed Not Available [facility] 12/23/2024 09:02:25 Pneumococcal conjugate PCV20, polysaccharide [id number] conjugate, adjuvant, PF 5 completed Not Available [facility] 12/23/2024 09:02:25 Past Encounters Encounter ID Performer Location Encounter Start Date Encounter Closed Date Diagnosis/Indication Diagnosis SNOMED-CT Code Diagnosis ICD10 Code Diagnosis Note [id number] CHERYL MORROW MD [facility] [address] [place] [address] 12/23/2024 09:00:07 12/29/2024 17:17:28 Malignant neoplasm of prostate 311993312 C61 Dysuria 44604591 R30.0 Health Concerns Section Related Observation LastModified by Organization Detai ls LastModified Time None Recorded Concern Status LastModified by Organization Details LastModified Time None Recorded Payers Encounter Date Sequence Insurance Name Policy Number Policy Saucedo Covered Member ID Saucedo Member ID Guarantor Name 12/23/2024 1 [employer] [employer] Shantell David [id number] Dino David Notes Date Note Type Note Provider Name and Address Organization Details Recorded Time 12/23/2024 text/html 64-year-old male presents for follow-up of prostate cancer Robotic radical prostatectomy 12/2024. pT3a, grade group 2, negative margins, bilateral nerve sparing performed. Patient has had significant dysuria and worsening bladder spasms. He does report that his leg bag filled completely causing him to drop and tug on the catheter which started the symptoms. No fevers or chills. Continence Function Questionnaire:[3] Urinary control:Frequent dribbling[4] Leaked urine:About once a day[3] How big of a problem urinary function has been:Small problem SVETLANA Dela [facility] 12/23/2024 11:28:34
--- OUTSIDE RECORDS SUMMARY | 2025-02-01 20:52 | XMS_ITS | Data Portability ---
Author Organization [place] - [place] [facility], [facility] Address [address] [place] [address] Care Team Providers Care [employer] Officer Name Role Phone NICHOLAS DOWLING Primary Care Provider [phone] Assessment Encounter Date Assessment Date Assessment LastModified by Organization Details LastModified Time 11/12/2024 11/12/2024 64-year-old male presents for TRUS prostate biopsy. Elevated PSA 6.8 on 09/2024. Iso-PSA 16.6 on 09/2024. Prostate MRI 10/2024 revealed 70 g gland PI-RADS 2. [email or web address] Not available 11/12/2024 13:49:28 11/18/2024 11/18/2024 64-year-old male presents for follow-up of prostate cancer. Elevated PSA 6.8 on 09/2024. Iso-PSA 16.6 on 09/2024. Prostate MRI 10/2024 revealed 70 g gland PI-RADS 2. Prostate biopsy 11/2024 reveals 4/12 cores positive with grade group 1 disease. Reviewed PSA, iso-PSA, prostate MRI, prostate biopsy pathology [email or web address] Not available 11/18/2024 10:44:25 12/23/2024 12/23/2024 64-year-old male presents for follow-up of prostate cancer Robotic radical prostatectomy 12/2024. pT3a, grade group 2, negative margins, bilateral nerve sparing performed. Not available 12/23/2024 09:35:18 Plan of Treatment Reminders Order Date Submit Date Provider Last Modified By Organization Details Last Modified Time Details Appointments LAB BLOOD DRAW 2024 09:50A M [facility] Not available Not available Not available ESTABLISH ED 15 2024 10:00A M CHERYL MORROW MD Not available Not available Not available APC EST 2025 10:40A M Jigna Yao PA-C Not available Not available Not available Lab urinalysi s, dipstick [address] [facility], [address], [address], [place], [address], 12/23/2024 11:53:44 urinalysi s, microscop ic [address] [facility], [address], [address], [place], [address], 12/23/2024 11:53:46 culture, urine [address] [facility], [address], [address], [place], [address], 12/26/2024 11:20:29 biopsy, prostate 2024 025 [facility], [address], [place], [address], 11/14/2024 15:00:47 Referral None recorded. Procedures None recorded. Surgeries prostatec gus with bilateral pelvic lymph node dissectio n, robot assisted laparosco pic (SURG) 2024 025 [facility], [address] [facility] [address], [place], [address], 12/24/2024 10:51:[address], cystogram - Eval bladder leak following prostatec gus 2024 025 [facility] [place], [address] [facility] Lenard Maurer, [place], [address], 12/29/2024 15:21:09 Medication Orders tadalafil 5 mg tablet 2024 025 [id number], [address] [facility] [address] , [place], [address], 11/18/2024 10:40:39 ceftriaxo ne 1 gram solution for injection 2024 025 mgoodpaste r3 [facility], [address], [place], [address], 11/18/2024 10:17:26 Patient TargetsNo targets recorded. Patient Instructions Encounter Date Encounter Id Patient Instructions Last Modified By Organization Details Last Modified Time 11/12/2024 [id number] 64-year-old male presents for TRUS prostate biopsy. Elevated PSA 6.8 on 09/2024. Iso-PSA 16.6 on 09/2024. Prostate MRI 10/2024 revealed 70 g gland PI-RADS 2. Prostate biopsy performed without complication, patient will follow-up for pathology review [email or web address] Not available 11/12/2024 13:49:42 11/18/2024 [id number] 64-year-old male presents for follow-up of prostate cancer. Elevated PSA 6.8 on 09/2024. Iso-PSA 16.6 on 09/2024. Prostate MRI 10/2024 revealed 70 g gland PI-RADS 2. Prostate biopsy 11/2024 reveals 4/12 cores positive with grade group 1 disease. We had an in-depth discussion about the treatment options including active surveillance, radiation, and robotic radical prostatectomy. Risks, benefits, and expected recovery following both radiation and robotic radical prostatectomy were explained. Counseled that radiation typically leads to overactive bladder symptoms, decline in erectile function over the years following radiation, and risks of late term complications many years down the road. Depending on grade of cancer, hormone deprivation may also be indicated. Counseled patient that robotic radical prostatectomy typically involves an overnight hospital stay and Lance catheterization for10 to 14 days, and avoidance of strenuous physical activity for 6 weeks postoperatively. We discussed the risks of surgery including but not limited to urinary incontinence, erectile dysfunction, rectal injury, small bowel or colonic injury, hemorrhage with injury to vascular structures, lymphocele with or without infection, DVT, PE, MT, hernia formation, bladder neck contracture and other urethral strictures, positional injuries and anesthetic related injuries. --- Patient wishes to proceed with a robotic radical prostatectomy and bilateral pelvic lymph node dissection. --- Counseled on Kegel exercises. --- Cialis 5 mg daily prescribed to start now and into the perioperative period. [email or web address] Not available 11/18/2024 10:42:01 12/23/2024 [id number] 64-year-old male presents for follow-up of prostate [...] cystogram prior to catheter removal next week. [email or web address] Not available 12/23/2024 09:35:50 Reason for Referral None Reported. Results Created Date Observation Date Name Description Value Unit Range Abnormal Flag Note LastModifiedBy Organization Detail LastModifiedTime 11/13/1911/12/2024 PROST ATE BIOPS Y left lateral base BENIGN PROSTA TIC TISSUE normal Not Available [facility] [employer] [address] , [place], [address], 11/14/2024 15:00:47 11/13/19 25 11/12/2024 PROST ATE BIOPS Y left base BENIGN PROSTA TIC TISSUE normal Not Available [facility] [employer] [address] , [place], [address], 11/14/2024 15:00:47 11/13/19 25 11/12/2024 PROST ATE BIOPS Y left lateral mid ADENOC ARCINO MA abnormal Not Available [facility] [employer] [address] , [place], [address], 11/14/2024 15:00:47 11/13/19 25 11/12/2024 PROST ATE BIOPS Y left mid ADENOC ARCINO MA abnormal Not Available [facility] [employer] [address] , [place], [address], 11/14/2024 15:00:47 11/13/19 25 11/12/2024 PROST ATE BIOPS Y left lateral apex BENIGN PROSTA TIC TISSUE normal Not Available [facility] [employer] [address], [place], [address], 11/14/2024 15:00:47 11/13/19 25 11/12/2024 PROST ATE BIOPS Y left apex BENIGN PROSTA TIC TISSUE normal Not Available [facility] [place] [address], [place], [address], 11/14/2024 15:00:47 11/13/19 25 11/12/2024 PROST ATE BIOPS Y right base ADENOC ARCINO MA abnormal Not Available [facility] [place] [address], [place], [address], 11/14/2024 15:00:47 11/13/19 25 11/12/2024 PROST ATE BIOPS Y right lateral base ADENOC ARCINO MA abnormal Not Available [facility] [place] [address], [place], [address], 11/14/2024 15:00:47 11/13/19 25 11/12/2024 PROST ATE BIOPS Y right mid BENIGN PROSTA TIC TISSUE normal Not Available [facility] [place] [address], [place], [address], 11/14/2024 15:00:47 11/13/19 25 11/12/2024 PROST ATE BIOPS Y right lateral mid BENIGN PROSTA TIC TISSUE normal Not Available [facility] [place] [address], [place], [address], 11/14/2024 15:00:47 11/13/19 25 11/12/2024 PROST ATE BIOPS Y right apex BENIGN PROSTA TIC TISSUE normal Not Available [facility] [place] [address], [place], [address], 11/14/2024 15:00:47 11/13/19 25 11/12/2024 PROST ATE BIOPS Y right lateral apex BENIGN PROSTA TIC TISSUE normal Not Available [facility] [place] [address], [place], [address], 11/14/2024 15:00:47 12/24/19 25 12/23/2024 UA WITHO UT MICRO - CS URISC AN blood - uriscan LARGE negati ve abnormal Not Available [facility] [address] [facility] [address], [place], [address], 12/23/2024 11:53:44 12/24/19 25 12/23/2024 UA WITHO UT MICRO - CS URISC AN bilirubin - uriscan NEGATI VE mg/dL negati ve Not Available [facility] [address] [place] [address] [address], [place], [address], 12/23/2024 11:53:44 12/24/19 25 12/23/2024 UA WITHO UT MICRO - CS URISC AN urobilinogen - uriscan NORMAL mg/dL normal Not Available [facility] [address] [facility] [address], [place], [address], 12/23/2024 11:53:44 12/24/19 25 12/23/2024 UA WITHO UT MICRO - CS URISC AN ketones - uriscan NEGATI VE mg/dL negati ve Not Available [facility] [address] [place] [address] [address], [place], [address], 12/23/2024 11:53:44 12/24/19 25 12/23/2024 UA WITHO UT MICRO - CS URISC AN protein - uriscan 10 mg/dL negati ve abnormal Not Available [facility] [address] [place] [address] [address], [place], [address], 12/23/2024 11:53:44 12/24/19 25 12/23/2024 UA WITHO UT MICRO - CS URISC AN nitrites - uriscan POSITI VE negati ve abnormal Not Available [facility] [address] [place] [address] [address], [place], [address], 12/23/2024 11:53:44 12/24/19 25 12/23/2024 UA WITHO UT MICRO - CS URISC AN glucose - uriscan NEGATI VE mg/dL negati ve Not Available [facility] [address] [place] [address] [address], [place], [address], 12/23/2024 11:53:44 12/24/19 25 12/23/2024 UA WITHO UT MICRO - CS URISC AN pH - uriscan 6.00 5.00-9 .00 Not Available [facility] [address] [place] [address] [address], [place], [address], 12/23/2024 11:53:44 12/24/19 25 12/23/2024 UA WITHO UT MICRO - CS URISC AN sp. gravity - uriscan 1.01 1.01-1 .03 Not Available [facility] [address] [place] [address] [address], [place], [address], 12/23/2024 11:53:44 12/24/19 25 12/23/2024 UA WITHO UT MICRO - CS URISC AN leukocytes - uriscan TRACE negati ve abnormal Not Available [facility] [address] [place] [address] [address], [place], [address], 12/23/2024 11:53:44 12/24/19 25 12/23/2024 UA WITHO UT MICRO - CS URISC AN color - uriscan YELLOW lt. yellow ;yello w Not Available [facility] [address] [place] [address] [address], [place], [address], 12/23/2024 11:53:44 12/24/19 25 12/23/2024 UA WITHO UT MICRO - CS URISC AN clarity - uriscan CLEAR clear Not Available [facility] [address] [place] [address] [address], [place], [address], 12/23/2024 11:53:44 12/24/19 25 12/23/2024 UA WITHO UT MICRO - CS URISC AN total urine volume (mL) 60 /mL ----- ----- ----- ----- ----- ----- ----- ----- ----- ----- ----- ----- ----- ----- ---- *Moris ramirez note the follo wing minim um quant [...] tions based on the resul t. Earlene garcia allow up to one week for provi greg revie w. Not Available [facility] [address], [address], 12/23/2024 11:53:44 12/24/19 25 12/23/2024 UA MICRO SCOPI C U-WBC 11 - 25 [hpf] 0 - 2 abnormal Not Available [facility] [address] [facility] [address], [place], [address], 12/23/2024 11:53:46 12/24/19 25 12/23/2024 UA MICRO SCOPI C U-RBC 0 - 2 [hpf] 0 - 2 Not Available [facility] [address] [facility] [address], [place], [address], 12/23/2024 11:53:46 12/24/19 25 12/23/2024 UA MICRO SCOPI C bacteria MANY [hpf] none;r are abnormal Not Available [facility] [address] [facility] [address], [place], [address], 12/23/2024 11:53:46 12/24/19 25 12/23/2024 UA MICRO [...] for provi greg revie w. Not Available [facility] [address], [place], [address], 12/23/2024 11:53:46 12/24/1912/23/2024 URINE CULTU RE final report MICROB IOLOGY [...] ate 2) Sensi tivit y [place] ----- ----- ----- ----- ----- [...] west usage of the drugs . Infor matio n on doxyc yclin e and minoc yclin e can be found in the Physi krista' s Desk Refer ence or from the [facility]. S= Susce ptibl e;I= Inter [...] for provi greg revie w. Not Available [facility] [address] [facility] [address], [place], [address], 12/26/2024 11:20:28 10/20/19 25 10/17/2024 MRI, prost ate, w/wo contr ast No observ ation record ed. [email or web address] [facility] [place] [address] [facility] [address], [place], [address], 10/20/2024 09:46:27 12/30/19 25 12/29/2024 CT, cysto gram No observ ation record ed. JOSE [facility] [place] [address] [facility] [address], [place], [address], 12/30/2024 07:48:35 Result Notes None recorded. Problems Name Problem SNOMED Code Status Onset Date Resolution Date Notes Provider Name and Address Organization Details Recorded Time Ostium secundum type atrial septal defect 128006028 Active 2023 [employer] null, [facility] 4 15:47:28 Cerebral infarction 390508378 Active 2023 [employer] null, [facility] 4 15:47:40 Transient cerebral ischemia 768461936 Active 2023 [employer] null, [facility] 4 15:47:48 Hypercholester olemia 95895175 Active 2023 [facility] null, [facility] 4 15:47:54 Gastroesophage al reflux disease 979350564 Active 2023 [employer] null, [facility] 4 15:48:00 Adenomatous polyp of colon 248467325 Active 2023 [facility] null, [facility] 4 15:48:09 Prostate specific antigen above reference range 689806586 Active 2024 CHERYL MORROW MD [address] [place] [address],[address] [place] [address], [address], [facility] 5 13:49:45 Malignant neoplasm of prostate 902039680 Active 2024 CHERYL MORROW MD [address] [place] [address],[address] [place] [address], [address], [facility] 5 10:36:55 Erectile dysfunction 994080019 Active 2024 CHERYL MORROW MD [address] [place] [address],[address] [place] [address], [address], [facility] 5 10:39:54 Acute urinary tract infection 084553404 Active 2024 CHERYL MORROW MD [address] [place] [address],[address] [place] [address], [address], [facility] 5 14:56:33 Problem Notes None recorded. Procedures Surgical History Date Name Laterality Status Provider Name and Address Organization Details Recorded Time 01/02/20 25 Lance Catheter Removal completed Amos Alba [facility] 01/01/2025 12:51:49 12/24/19 25 Bladder Irrigation completed CHERYL MORROW MD [address] [place] [address],[address], [place], [address], [facility] 12/23/2024 09:35:15 12/18/19 25 PROSTATECTOMY WITH BILATERAL PELVIC LYMPH NODE DISSECTION, ROBOT ASSISTED LAPAROSCOPIC (SURG) completed Gali Nair [facility] 12/24/2024 10:52:04 11/19/19 25 COMPLEX VISIT completed CHERYL MORROW MD [address] [place] [address],[address], [place], [address], [facility] 11/18/2024 10:44:12 11/13/19 25 Prostate Biopsy Procedure completed CHERYL MORROW MD [address] [place] [address],[address], [place], [address], [facility] 11/12/2024 13:49:26 11/13/19 25 Rocephin/Ceftriax one completed Karo Adair [facility] 11/12/2024 13:41:36 10/03/19 25 Blood Draw/HEAD BELLHOP CAPTAIN/PSA RESULTS completed Karo Adair [facility] 10/02/2024 10:23:42 09/17/19 25 Bladder Scan completed Carolann Conner [facility] 09/16/2024 11:42:18 09/10/19 24 Colonoscopy [address] Cheng Oneal [facility] 09/26/2023 11:05:27 08/07/19 24 COMPLEX VISIT completed Hieu Park MD [address] [facility],[address], [place], [address], [facility] 08/07/2023 15:02:44 08/07/19 24 Bladder Scan completed Cheng Oneal [facility] 08/07/2023 14:46:50 07/09/19 20 Diagnostic colonoscopy completed Carolann Conner [facility] 09/16/2024 11:41:54 11/02/19 13 Colonoscopy completed [facility] 07/31/2023 15:48:32 Insert epicard eltrd open completed [...] d Address Organization Details Last Updated DateTime 11/12/2024 185.42 cm Essence Contreras [facility] 11/12/2024 14:10:45 Date Recorded Body height Body mass index (BMI) Body weight Provider Name and Address Organization Details Last Updated DateTime 11/18/2024 185.42 cm 32.3 kg/m2 896935.13 g Mariely Sosa [facility] 11/18/2024 10:17:09 Date Recorded Body height Body mass index (BMI) Body weight Provider Name and Address Organization Details Last Updated DateTime 12/23/2024 185.42 cm 32.3 kg/m2 636413.13 g Mariely Sosa [facility] 12/23/2024 09:24:35 Date Recorded Body height Provider Name an d Address Organization Details Last Updated DateTime 01/01/2025 185.42 cm Amos Alba [facility] 01/01/2025 12:18:39 Social History Question [...] Unknown Information not available 12/23/2024 Preferred Language Korean Information not available 12/23/2024 Do You Have A Medical Power Of Hvac Mechanic? No [email or web address] Information not available 09/12/2024 What [...] High Blood Pressure N Kidney Stones N Lung Disease N Depression N GERD/Acid Reflux N Diabetes N Sexually Transmitted Infection N Bleeding Disorder N Cancer N High Cholesterol Y Heart Disease N Immunizations Vaccine Type Date Status Note Provider Nam e and Address Organization Details Recorded Time influenza, unspecified formulation [address] [facility] 08/07/2023 14:38:32 SARS-COV-2 (COVID-19) vaccine, UNSPECIFIED 2 completed Cheng Meath null, [facility] 08/07/2023 14:38:32 Influenza, split virus, quadrivalent, preservative 7 completed Cheng Meath null, [facility] 08/07/2023 14:38:31 Influenza, injectable,quadriva lent, preservative free, pediatric 3 completed Cheng Meath null, [facility] 08/07/2023 14:38:31 COVID-19, mRNA, LNP-S, PF, 30 mcg/0.3 mL dose 2 completed Cheng Meath null, [facility] 08/07/2023 14:38:31 COVID-19, mRNA, LNP-S, PF, 30 mcg/0.3 mL dose 1 completed Cheng Meath null, [facility] 08/07/2023 14:38:32 COVID-19, mRNA, LNP-S, PF, 30 mcg/0.3 mL dose 1 completed Cheng Meath null, [facility] 08/07/2023 14:38:32 Tdap 4 completed Cheng Meath null, [facility] 08/07/2023 14:38:32 Influenza, split virus, quadrivalent, PF 6 completed Cheng Meath null, [facility] 08/07/2023 14:38:32 Influenza, split virus, quadrivalent, PF 0 completed Cheng Meath null, [facility] 08/07/2023 14:38:32 Influenza, split virus, quadrivalent, PF 3 completed Cheng Meath null, [facility] 08/07/2023 14:38:32 Influenza, split virus, quadrivalent, PF 0 completed Cheng Meath null, [facility] 08/07/2023 14:38:32 Influenza, split virus, quadrivalent, PF 6 completed Cheng Meath null, [facility] 08/07/2023 14:38:32 Influenza, split virus, quadrivalent, PF 4 completed SVETLANA [facility] 08/07/2023 14:38:32 SARS-COV-2 (COVID-19) vaccine, UNSPECIFIED 3 completed Not Available [facility] 09/12/2024 11:05:32 Tdap 5 completed Not Available [facility] 12/23/2024 09:02:25 Pneumococcal conjugate PCV20, polysaccharide GQU885 conjugate, adjuvant, PF 5 completed Not Available [facility] 12/23/2024 09:02:25 Past Encounters Encounter ID Performer Location Encounter Start Date Encounter Closed Date Diagnosis/Indication Diagnosis SNOMED-CT Code Diagnosis ICD10 Code Diagnosis Note [id number] Hieu Pakr MD [facility] [address] [place] [address] 08/07/2023 09:00:32 08/07/2023 15:14:49 Lower urinary tract symptoms due to benign prostatic hypertrophy 0457974302 9101 N40.1 Primary er ectile dysfunction 692138529 N52.9 Prostate s pecific antigen above reference range 495876926 R97.20 [id number] Jigna Yao PA-C [facility] [address] [place] [address] 09/16/2024 08:09:00 09/16/2024 12:52:08 Lower urinary tract symptoms due to benign prostatic hypertrophy 7444762463 9101 N40.1 Primary er ectile dysfunction 663872595 N52.9 Prostate s pecific antigen above reference range 107188032 R97.20 [id number] Jigna Yao PA-C [facility] [address] [address] 10/02/2024 10:21:50 10/02/2024 10:24:17 Prostate specific antigen above reference range 682738080 R97.20 [id number] CHERYL MORROW MD [facility] [address] [address] 11/12/2024 13:38:42 11/12/2024 13:42:52 Prostate specific antigen above reference range 339291681 R97.20 [id number] MD [facility] [address] [place] [address] 11/12/2024 13:40:15 11/17/2024 19:58:28 Prostate specific antigen above reference range 658249126 R97.20 [id number] MD Arian POZOMaynor[address] [address] 11/18/2024 10:10:01 11/21/2024 17:35:22 Malignant neoplasm of prostate 560568094 C61 Erectile dysfunction 860 361819 N52.9 [id number] MD Arian POZOGerry guzmán[address] [address] 12/23/2024 09:00:07 12/29/2024 17:17:28 Malignant neoplasm of prostate 187602752 C61 Dysuria 25078205 R30.0 [id number] MD Arian POZOGerry guzmán[address] [address] 01/01/2025 12:07:46 01/06/2025 04:02:41 Malignant neoplasm of prostate 667956681 C61 Health Concerns Section Related Observation LastModified by Organization Detai ls LastModified Time None Recorded Concern Status LastModified by Organization Details LastModified Time None Recorded Advance Directives Directive N: Payers Insurance Date Sequence Insurance Name Policy Number Policy Saucedo Covered Member ID Saucedo Member ID Guarantor Name 01/26/2025 1 [facility] [employer] Shantell David [id number] Dino David Notes Date Note Type Note Provider Name and Address Organization Details Recorded Time 11/12/2024 text/html 64-year-old male presents for TRUS prostate biopsy. Elevated PSA 6.8 on 09/2024. Iso-PSA 16.6 on 09/2024. Prostate MRI 10/2024 revealed 70 g gland PI-RADS 2. SVETLANA Ch[facility] 11/12/2024 15:22:34 11/18/2024 text/html 64-year-old male presents for follow-up of prostate cancer.Elevated PSA 6.8 on 09/2024. Iso-PSA 16.6 on 09/2024. Prostate MRI 10/2024 revealed 70 g gland PI-RADS 2. Prostate biopsy 11/2024 reveals 4/12 cores positive with grade group 1 disease. No prior intra-abdominal surgeries. Significant obstructive voiding symptoms at baseline. Mild erectile dysfunction well-managed with sildenafil at the 40 mg dose. Continence Function Questionnaire:[3] Urinary control:Frequent dribbling[5] Leaked urine:Several times a day[3] How big of a problem urinary function has been:Small problem CHERYL MORROW MD [address] [facility],[address], [place], [address], [facility] 11/18/2024 10:44:35 12/23/2024 text/html 64-year-old male presents for follow-up [...] a problem urinary function has been:Small problem Mariely brown [facility] 12/23/2024 11:28:34
[2025-02-01 20:58] VITALS: BP 143/78; PULSE 68; RESP 16; TEMP 36.3; O2SAT 94; BMI 33.0
--- NOTE | 2025-02-01 21:13 | ED.GENADULT ---
HPI - General Adult General Chief complaint: Laceration/Wound Stated complaint: L thumb LAC Time Seen by Provider: 02/01/25 21:04 History of Present Illness HPI narrative: Patient c/o laceration to left thumb @ 1745 today. Patient was chopping onions and cut himself with a kitchen knife. Patient states it has not stopped bleeding. Patient is on 81mg ASA daily. Unsure tetanus . 64-year-old man presenting to the emergency department after cutting his left thumb. Was cutting onions about 3-1/2 hours ago and cut the tip of his left thumb. The been unable to get it to stop bleeding. Review of Systems Status of ROS: Reports: 6 or more systems reviewed and unremarkable except as noted in History and below [facility] Social History Smoking Status: Never smoker Do you use any of these nicotine containing products: None How often do you have a drink containing alcohol: never AUDIT-C Alcohol total score: 0 Non-prescribed substance use: denies use Exam Narrative: Exam Narrative: Pleasant. NAD. Area in question the left thumb is covered in gauze. Removing this reveals a flap laceration with apex superior. Maximal dimension about 1 cm. At the very distal aspect of the thumb. Bleeds lightly. Const: Vital Signs, click to edit/add: Vital Signs - 24 hr 02/01/25 20:58 Temperature 97.3 F L Pulse Rate [Left P ulse Oximeter] 68 Respiratory Rate 16 Blood Pressure [Ri ght Upper Arm] 143/78 H Pulse Oximetry 94 Oxygen Delivery Me thod Room Air Documenting provider has reviewed patient's vital signs: yes Course Vital Signs Vital signs: Initial Vital Signs Temperature 97.3 F L 02/01/25 20:58 Temperature Source Temporal Artery Scan 02/01/25 20:58 Pulse Rate 68 02/01/25 20:58 Respiratory Rate 16 02/01/25 20:58 Blood Pressure 143/78 H 02/01/25 20:58 Blood Pressure Mean 99 02/01/25 20:58 Blood Pressure Position Sitting 02/01/25 20:58 Pulse Oximetry 94 02/01/25 20:58 Oxygen Delivery Method Room Air 02/01/25 20:58 Vital Signs Temperature 97.3 F L 02/01/25 20:58 Pulse Rate 68 02/01/25 20:58 Respiratory Rate 16 02/01/25 20:58 Blood Pressure 143/78 H 02/01/25 20:58 Pulse Oximetry 94 02/01/25 20:58 Oxygen Delivery Method Room Air 02/01/25 20:58 Temperature 97.3 F L 02/01/25 20:58 Pulse Rate 68 02/01/25 20:58 Respiratory Rate 16 02/01/25 20:58 Blood Pressure 143/78 H 02/01/25 20:58 Pulse Oximetry 94 02/01/25 20:58 Oxygen Delivery Method Room Air 02/01/25 20:58 Medical Decision Making MDM Narrative Medical decision making narrative: There is not a lot to so here but I think the skin and distal thumb tissue would be best as a Band-Aid. After cleansing with Hibiclens and water solution. He had applied some pressure. I reassessed and did not appear to have significantly active bleeding. Slight ooze along the upper margin. Placed antibiotic ointment and a Band-Aid and then wrapped with light pressure gauze. Rested in the emergency department and after time of reassessment there was no bleeding through dressing. He declined stack finger splint See patient discharge plan for further discussion Elevate for comfort. Ibuprofen, acetaminophen. If bleed through this dressing go ahead and re-dress. If bleed through that as well please return. Keep current dressing on until later in the day tomorrow. Change dressing daily. May need to briefly soak off dressing if sticking on. Or at least would peel off starting from the underside of your thumb if necessary. Would keep some protection on over this next week at least while healing. Probably okay to get briefly wet but try to avoid soaking if possible. Antibiotic ointment with dressing for the next 3-4 days. Discharge Plan Discharge Clinical Impression: Finger laceration Patient Disposition: Home, Self-Care Condition: Improved Additional Instructions: Elevate for comfort. Ibuprofen, acetaminophen. If bleed through this dressing go ahead and re-dress. If bleed through that as well please return. Keep current dressing on until later in the day tomorrow. Change dressing daily. May need to briefly soak off dressing if sticking on. Or at least would peel off starting from the underside of your thumb if necessary. Would keep some protection on over this next week at least while healing. Probably okay to get briefly wet but try to avoid soaking if possible. Antibiotic ointment with dressing for the next 3-4 days. Follow Up/Referrals: Geovanna Lopez DO [Primary Care Provider, Family Practice] Stand Alone Forms: [facility] Softwareth Info Instructions
== END 2025-02-01 22:00 | disposition home or self-care (01) ==
LOC: ED 21:49
PROVIDERS: Emergency Provider Family Medicine; PCP Family Medicine
DX: S61.012A Laceration without foreign body of left thumb without damage to nail, initial encounter (principal); W26.0XXA Contact with knife, initial encounter
CPT/HCPCS: 99282; 99284